=== PATIENT | male | born 1995 | race Caucasian/White ===

== ENCOUNTER → 2023-03-14 10:54 | Outpatient (BNVA) | payer SELFPAY | PROVIDERS: Visit Provider Nurse Practitioner Family | DX: R55 Syncope and collapse (principal); R31.9 Hematuria, unspecified; F19.90 Other psychoactive substance use, unspecified, uncomplicated; F12.10 Cannabis abuse, uncomplicated; F15.10 Other stimulant abuse, uncomplicated | CPT/HCPCS: 80053; 80061; 80307; 81000; 87086 ==

== ENCOUNTER → 2023-03-16 11:01 | Outpatient (BNVA) | payer SELFPAY | PROVIDERS: PCP Nurse Practitioner Family; Visit Provider Nurse Practitioner Family | DX: E16.2 Hypoglycemia, unspecified (principal) | CPT/HCPCS: 83036 ==

== ENCOUNTER 2023-05-24 05:55 | Day surgery (SDC) | payer OTHER, SELFPAY ==
[2023-05-24] VITALS (14 sets, daily range): BP systolic 89–131; BP diastolic 49–91; PULSE 52–73; RESP 16–20; TEMP 36.2–37.1; O2SAT 97–100
[2023-05-24] MEDS: sodium chloride 0.9% 1,000 ML 30 ML IV (06:18)
[2023-05-24] MEDS: vancomycin 1,000 MG in sodium chloride 0.9% 250 ML 250 MG IV (06:19)
--- NOTE | 2023-05-24 06:33 | P.ANESASSM_ITS ---
Pre-Anesthetic Assessment Height/Weight: Height 1.73 m Weight 59.874 kg Temp Pulse Resp BP Pulse Ox O2 Del Method 98.8 F 72 18 111/72 97 Room Air 05/24/23 06:05 05/24/23 06:05 05/24/23 06:05 05/24/23 06:05 05/24/23 06:05 05/24/23 06:06 Preop Diagnosis: right inguinal hernia Operation Date: 05/24/23 07:00 Proposed Procedures p [id number] lap right inguinal hernia repair possible open K40.90(Right) - Sloan Carrera MD Familial anesthetic complications: None Was Beta Esme taken within 24 hours: N/A Was Clonidine taken within 24 hours: N/A Last intake: Intake Last Liquid Date 05/23/23 Last Liquid Time 19:30 Last Solid Date 05/23/23 Last Solid Time 19:30 Social No alcohol and No tobacco Exam alert, oriented x 3, clear to auscultation bilaterally and regular rate & rhythm Airway Submandibular: within normal limits Cervical ROM: within normal limits Mallampati: Class I Dentition: full History/ROS No significant history except as noted Pulmonary None reported CV/HEM None reported None reported Hepatic None reported GI None reported Metabolic None reported Musc/skel None reported Neuropsych None reported Anesthetic Plan ASA status: 1 Anesthesia: General Risk of > 500 ml blood loss (7ml/kg in children): No Medications/Allergies Allergies Allergy/AdvReac Type Severity Reaction Status Date / Time Penicillins Allergy huves/trouble Verified 05/24/23 06:02 breathing/swelling all over Current Medications Generic Name Dose Route Start Last Admin Trade Name Nicholas PRN Reason Stop Dose Admin Vancomycin HCl 1,000 mg/ 250 mls @ 250 mls/hr 05/24/23 06:00 05/24/23 06:19 Sodium Chloride IV 05/24/23 06:59 250 mls/hr [employer] Administration Protocol Sodium Chloride 1,000 mls @ 30 mls/hr 05/24/23 06:00 05/24/23 06:18 Sodium Chloride 0.9% IV 05/25/23 05:59 30 mls/hr .Q24H ESTEBAN Administration PFSH Anesthesia Family History (Updated 04/24/23 @ 13:16 by LUCINDA Booth) Father Diabetes Hypertension Mother Diabetes Hypertension Social History (Updated 04/24/23 @ 13:16 by LUCINDA Booth) Smoking and tobacco/nicotine status: current every day tobacco/nicotine user smokeless tobacco Smokeless tobacco user: chewing tobacco Data Anesthesia Cardiac Studies: No Data to Display
--- NOTE | 2023-05-24 06:39 | W.PM.OPSUD ---
Surgery/Procedure H&P Update DATE OF PROCEDURE: May 24, 2023 DATE H&P PERFORMED: 04/24/23 H&P UPDATE INFORMATION: I have reviewed H&P completed within last 30 days, I have examined patient prior to procedure, No changes to prior documentation and H&P is in [facility] on date indicated PREOP DIAGNOSIS: right inguinal hernia PLANNED PROCEDURE: Operation Date: 05/24/23 07:00 Proposed Procedures p [id number] lap right inguinal hernia repair possible open K40.90(Right) - Sloan Carrera MD
[2023-05-24] MEDS: BUPivacaine 0.25% INJ 10 mL INJECTION (07:57)
[2023-05-24] MEDS: lidocaine-epi 1% 20 mL INJ INJECTION (07:57)
--- NOTE | 2023-05-24 08:13 | P.OP_ITS ---
Operative Report Date of procedure: May 24, 2023 Pre-op diagnosis: Right inguinal hernia Post-op diagnosis: Direct right inguinal hernia Post-op findings: There was a direct right inguinal hernia containing preperitoneal fat. Procedure done: Laparoscopic inguinal hernia repair with mesh. Implants: Bard 3D max large mesh Surgeon: Sloan Carrera MD Apartment Coordinator: BRISEIDA OR Staff Estimated blood loss: 5 Complications: none Brief History: This a 27-year-old male with a right inguinal hernia who presented to my clinic for evaluation, after discussion of risk and benefits of the procedure we decided proceed to a laparoscopic possible open right inguinal hernia repair with mesh. Procedure: The patient was brought into the OR. He was placed in the supine position. The abdomen was prepped and draped in the usual sterile fashion after general esthesia was given. Timeout was conducted. 1.5 cm infraumbilical incision was made, the incision was deepened to the level of the anterior rectus sheath, the anterior rectus sheath was carefully opened and access in the left rectus muscle space, the muscle was retracted laterally accessing the retrorectus space the space was developed with the retractor and then a balloon dissector was introduced at and advanced all the way down to the pubic bone with careful consideration of not penetrating the peritoneum. Anterior visualization the ba lloon was open and the preperitoneal space was dissected. The balloon was removed and replaced by a 12 mm balloon trocar, insufflation was achieved, I then placed 2 additional 5 mm trocars in the infraumbilical and suprapubic positions I then proceeded with dissection of the right inguinal region, I cleared the pubic bone in all the way to the midline and then I proceeded with lateral dissection of the space of borgos, during the dissection it was apparent that the patient had a direct inguinal hernia which was reduced and it only contained preperitoneal fat I then concentrated my efforts on dissecting the cord structures, the vas deferens and testicular vessels were individualized, no evidence of a indirect component was noted. Once the space had been completely dissected I then placed a large right side 3D max mesh and fixated the mesh to the pubic bone and Sha's ligament medially, no lateral fixation was needed the mesh was carefully placed to cover the direct indirect and femoral spaces, the insufflation was removed and the space was deflated under direct visualization to ensure adequate manage coverage. The trocars were removed the fascia of the anterior rectus sheath was closed with #0 Vicryl and the wounds were then closed with #4-0 Monocryl Dermabond was applied. At the end of the procedure all counts were correct the patient tolerated well the procedure and was transferred to the PACU in stable condition.
[2023-05-24] MEDS: fentaNYL 50 mcg/mL INJ 2mL IVP (09:03)
[2023-05-24] MEDS: oxyCODONE 5 mg IR Tab/Cap PO (09:40)
--- NOTE | 2023-05-24 16:55 | ANE.PACU2 ---
Inpatient post-anesthesia follow up: Airway intact: Yes Vital signs: Temperature 97.9 F Pulse Rate 58 Respiratory Rate 17 Blood Pressure 89/49 Pulse Oximetry 100 Oxygen Delivery Me thod Room Air Oxygen Flow Rate 6 Fraction of Inspir ed Oxygen Hydration adequate: Yes Nausea and vomiting: No Pain level: 3 Mental status: Baseline
== END 2023-05-24 09:55 | disposition home or self-care (01) ==
PROVIDERS: PCP Registered Nurse; Visit Provider Surgery
PROC: (CPT 49650; principal; 2023-05-24 07:00)
DX: K40.90 Unilateral inguinal hernia, without obstruction or gangrene, not specified as recurrent (principal); F17.290 Nicotine dependence, other tobacco product, uncomplicated
CPT/HCPCS: 49650; C1781; J1100; J2250; J2405; J2710; J3010; J3370; J3490; J7030; J7050